=== PATIENT | female | born 1990 | race Caucasian/White ===

== ENCOUNTER 2017-12-13 08:52 | Emergency (ER) | payer MEDICAID, SELFPAY ==
[2017-12-13 08:52] VITALS: BP 141/78; PULSE 101; RESP 15; TEMP 36.6; O2SAT 100; BMI 51.3
--- NOTE | 2017-12-13 09:22 | ED.VISSUMM ---
- ER Visit Summary Date of Service: 12/13/17 Chief Complaint: Bilateral wrist pain History of Present Illness: The patient is a 26 F past medical history of reflux. Patient states on Wednesday she started on bilateral wrist and hand pain. It has been constant now for 3 days. No prior history. No falls or trauma. Also complains of pain behind both knees. Physical Examination: Well-appearing young female. Vital signs are stable she is afebrile she does not look septic toxic. H EENT exam unremarkable. Neck nontender. Lungs clear to auscultation bilaterally. Rate and rhythm no murmur. Abdomen soft nontender normal bowel sounds no peritoneal signs. He is moving all 4 extremities. Neurovascular intact. She has pain in both hands and wrists. There is been no trauma. No redness or swelling. She has positive Tinel sign to both wrists and Phalen's. She is equal symmetrical radial pulses normal cap refill touch sensation. There is no bony deformity is her shoulders, elbows, wrists or hands. She has normal range of motion. Neck and back exam unremarkable. Neurologic exam normal. Test Results: [] Emergency Department Course and Treatment: The patient may have signs consistent with tunnel. She will need further testing to evaluate this. She will be treated with IM Toradol here for pain. Placed on Naprosyn. Treatment Plan: Anti-inflammatories and cockup wrist splints. Disposition: Discharged Impression: Bilateral wrist pain and carpal tunnel This note was generated with [employer] dictation software. It may contain incorrect words, spelling, and punctuation that were not noted in review of the chart prior to signing ED Disposition - Plan for ED Patient: Chief Complaint: Other, Pain/Inj Referrals: Care Physician,No Primary [Primary Care Provider] -
--- NOTE | 2017-12-13 09:26 | ED.DEP ---
ED Disposition - Plan for ED Patient: Disposition: Home or Assisted Living Chief Complaint: Other, Pain/Inj Instructions: ED Carpal Tunnel Prescriptions: Naproxen [Naprosyn] 500 mg PO BID PRN PRN #20 tab PRN Reason: Pain Referrals: Junior Wright MD [STAFF PHYSICIAN] - Additional Instructions: Your wrist pain may be secondary to carpal tunnel. This will need further testing to diagnose it. Use cockup wrist splints at night. Naprosyn for pain and inflammation. Call and follow-up with Dr. Wright.
[2017-12-13] MEDS: Ketorolac 60 MG/2 ML Vial IM (09:44)
== END 2017-12-13 10:08 | disposition home or self-care (01) ==
PROVIDERS: Emergency Provider Emergency Medicine
DX: M25.532 Pain in left wrist (principal); M25.531 Pain in right wrist; K21.9 Gastro-esophageal reflux disease without esophagitis; Z72.0 Tobacco use
CPT/HCPCS: 96372; 99282

== ENCOUNTER 2018-11-16 08:01 | Emergency (ER) | payer MEDICAID, SELFPAY ==
[2018-11-16 08:02] VITALS: BP 146/78; PULSE 107; RESP 17; TEMP 36.8; O2SAT 99; BMI 54.0
--- NOTE | 2018-11-16 08:16 | ED.VISSUMM ---
- ER Visit Summary Date of Service: 11/16/18 Chief Complaint: Foot pain History of Present Illness: The patient is a 27 F with left foot pain. The pain started overnight and was worse this morning when she started ambulating. The pain is in her medial foot and wraps around to the bottom of her foot. Patient says she has had this pain on and off for 8 months. She does have a cartilage defect to her left ankle and was instructed by her tree thinner to wear a walking boot. She is not taking medication for this. No trauma. No weakness or numbness. No other injuries or complaints. Physical Examination: Afebrile and vital signs are unremarkable except for heart rate of 107. Patient appears uncomfortable. Inspection shows that the patient is wearing a walking boot. The boot was removed. Skin is normal. No deformities. Neurovascularly intact. Patient has pain on palpation to the bottom of her foot over the plantar fascia. Otherwise exam unremarkable. Ankle nontender. Calf soft and supple. Test Results: None indicated Emergency Department Course and Treatment: Patient's symptoms and findings are consistent with plantar fasciitis. I believe that her issues are worse because she is wearing this walking boot. She is not able to stretch the fascia. I talked to her about stretching and rolling her foot out on a can, and she says that she cannot do this because she has to wear the walking boot. I talked to her about inserts. She said that she had already tried them. I offered her crutches and she declined. I offered her a note for work, and she said she would take one for today. I offered anti-inflammatories, and she said they do not work. I do not feel that narcotics are indicated for this, nor are they safe. I suggested the patient might benefit from some physical therapy, and she said she already tried this and it does not work. Advised the patient to follow-up with her tree thinner for care of her foot and ankle. Treatment Plan: Anti-inflammatories, stretching, follow-up with podiatry. Disposition: As above Impression: 1. Left foot pain This note was generated with [employer] software. It may contain incorrect words, spelling, and punctuation that were not noted in review of the chart prior to signing ED Disposition - Plan for ED Patient: Referrals: Osmani Holcomb MD [Primary Care Provider] -
--- NOTE | 2018-11-16 08:20 | DCINST.ED_ITS ---
ED Disposition - Plan for ED Patient: Instructions: Treating Plantar Fasciitis Additional Instructions: Follow up with your cryptologic support specialist
--- NOTE | 2018-11-16 08:20 | ED.DCSUM_ITS ---
- ER Visit Summary Date of Service: 11/16/18 Chief Complaint: Foot pain History of Present Illness: The patient is a 27 F with left foot pain. The pain started overnight and was worse this morning when she started ambulating. The pain is in her medial foot and wraps around to the bottom of her foot. Patient says she has had this pain on and off for 8 months. She does have a cartilage defect to her left ankle and was instructed by her shearer screen measurer and trimmer to wear a walking boot. She is not taking medication for this. No trauma. No weakness or numbness. No other injuries or complaints. Physical Examination: Afebrile and vital signs are unremarkable except for heart rate of 107. Patient appears uncomfortable. Inspection shows that the patient is wearing a walking boot. The boot was removed. Skin is normal. No deformities. Neurovascularly intact. Patient has pain on palpation to the bottom of her foot over the plantar fascia. Otherwise exam unremarkable. Ankle nontender. Calf soft and supple. Test Results: None indicated Emergency Department Course and Treatment: Patient's symptoms and findings are consistent with plantar fasciitis. I believe that her issues are worse because she is wearing this walking boot. She is not able to stretch the fascia. I talked to her about stretching and rolling her foot out on a can, and she says that she cannot do this because she has to wear the walking boot. I talked to her about inserts. She said that she had already tried them. I offered her crutches and she declined. I offered her a note for work, and she said she would take one for today. I offered anti-inflammatories, and she said they do not work. I do not feel that narcotics are indicated for this, nor are they safe. I suggested the patient might benefit from some physical therapy, and she said she already tried this and it does not work. Advised the patient to follow-up with her shearer screen measurer and trimmer for care of her foot and ankle. Treatment Plan: Anti-inflammatories, stretching, follow-up with podiatry. Disposition: As above Impression: 1. Left foot pain This note was generated with [employer] software. It may contain incorrect words, spelling, and punctuation that were not noted in review of the chart prior to signing ED Disposition - Plan for ED Patient: Referrals: Osmani Holcomb MD [Primary Care Provider] -
[2018-11-16] MEDS: Naproxen 500 MG Tablet PO (08:40)
== END 2018-11-16 08:40 | disposition home or self-care (01) ==
LOC: ED 08:30
PROVIDERS: Emergency Provider Emergency Medicine; Family Provider Family Medicine; PCP Family Medicine
DX: M79.672 Pain in left foot (principal); Z72.0 Tobacco use
CPT/HCPCS: 99283

== ENCOUNTER 2019-02-19 10:44 | Emergency (ER) | payer MEDICAID, SELFPAY ==
[2019-01-10 12:47] VITALS: BMI 54.0
[2019-02-19 10:45] VITALS: BP 131/85; PULSE 97; RESP 17; TEMP 36.6; O2SAT 99; BMI 53.1
--- NOTE | 2019-02-19 11:03 | RAD_ITS ---
STUDY: X-RAY CHEST REASON FOR EXAM: Female, 28 years old. Severe cough for one week. TECHNIQUE: PA and lateral views of the chest. COMPARISON: None. FINDINGS: The lungs are clear and expanded. There is no demonstrated pleural abnormality. Normal size heart. Normal mediastinum and marsha. Normal visualized pulmonary arteries. Normal visualized aortic arch and descending thoracic aorta. Normal visualized thoracic spine. Normal visualized ribs, clavicles, and shoulders. There is no demonstrated abnormality of the visualized soft tissue structures of the upper abdomen. RAD/Chest PA and Lateral IMPRESSION: Normal x-ray examination of the chest. Electronically Signed: Gurpreet Tran DO at 11:49 EDT Tel [phone], Service support ,
--- NOTE | 2019-02-19 12:16 | ED.VIS.URI ---
History of Present Illness Informant: Patient Onset: Weeks - 1 Context: Gradual Onset Timing: Continuous Quality: Productive cough Location: Chest Current Severity: Severe Maximum Severity: Severe Worsened by: - - At night Relieved by: - - Nothing Associated Symptoms: Nasal Congestion, Diarrhea, Productive Cough. Negative for: Headache, Sinus Pressure, Myalgias, Nausea, Vomiting, Shortness of Breath, Chest Pain, Nonproductive cough, Hemoptysis Narrative: 28-year-old female presents with 10 days of productive cough with sputum diarrhea sore throat and congestion. No fevers or chills or hemoptysis. No chest pain or shortness of breath. No vomiting. No abdominal pain. Kids sick with similar symptoms. 2 days ago went to an urgent care was prescribed a cough medicine. She has not had improvement. She is concerned for pneumonia. No history of asthma. Denies smoking. Rest of her review of systems negative. Prior similar symptoms: Yes Recent Illness/Hospitalization: No <Sean Frank - Last Filed: 02/19/19 12:30> <Torrey Ji - Last Filed: 02/19/19 16:16> Chief Complaint: Cough Past Medical History Prior records reviewed: Yes Past Medical History: - - Depression Surgical History: no surgical history Smoking Status: Current every day smoker <Sean Frank - Last Filed: 02/19/19 12:30> <Torrey Ji - Last Filed: 02/19/19 16:16> - Allergies and Home Meds Allergies/Adverse Reactions: Allergies No Known Allergies Allergy (Verified 02/19/19 10:45) Primary Care Physician: Osmani Holcomb MD [Primary Care Provider] - Review of Systems All systems negative except as indicated General: Reports: Malaise Respiratory: Reports: Cough, Sputum <Sean Frank - Last Filed: 02/19/19 12:30> Physical Exam Vital Signs/Narrative: Vital Signs Temp Pulse Resp BP Pulse Ox 02/19/19 10:45 97.9 F 97 17 131/85 H 99 Inital Vital Signs reviewed: Yes General: Well nourished, Well developed, Obese Head: Normocephalic, Atraumatic Eyes: Perrl, EOMI Ears: Normal external canal, TM's clear Nose: Normal Inspection, Congestion Mouth/Throat: Normal Inspection, No Posterior Erythema, Airway Patent Tonsils: Negative for: Absent, Right Tonsilar Erythema, Left Tonsilar Erythema Neck: Supple, Nontender, No Lymphadenopathy, No Meningismus Cardiovascular: Regular rate, Regular rhythm, No murmurs Respiratory: No distress, CTA bilaterally, Chest nontender Abdomen: Soft, Nontender, Nondistended, Normal bowel sounds, No masses Back: Nontender Extremities: Nontender, No edema Skin: Normal color, No rash Neurological: Alert, Oriented x3 <Sean Frank - Last Filed: 02/19/19 12:30> Diagnostic/Tx/Re-eval Chest X-Ray - ED: 2 View, Read by ED Physician, Read by Radiologist, No Acute Disease - Medical Decision Making Vital signs are stable and overall the patient appears well and is not clinically dehydrated. Her chest x-ray is unremarkable. Abdomen is soft and nontender. She is able to tolerate by mouth. Discussed with her this is likely a viral illness. Will prescribe an albuterol MDI for her cough as well as Tessalon Perles. She will continue supportive care at home and follow-up with her primary care physician. <Sean Frank - Last Filed: 02/19/19 12:30> - Medical Decision Making Seen and evaluated independently and in conjunction with physician retail loan originator assistant. Agree with notes above unless documented otherwise. <Torrey Ji - Last Filed: 02/19/19 16:16> ED Disposition <Sean Frank - Last Filed: 02/19/19 12:30> <Torrey Ji - Last Filed: 02/19/19 16:16> - Plan for ED Patient: Disposition: Home or Assisted Living Diagnosis: Acute bronchitis Instructions: BRONCHITIS, No Antibiotic (Adult) Prescriptions: Benzonatate [Tessalon Perle] 200 mg PO TID PRN PRN #20 cap PRN Reason: Cough Prescription Printed Albuterol Inhaler [Ventolin Hfa] 1 - 2 puff INHALATION Q4H PRN PRN #1 inhaler PRN Reason: Wheezing Prescription Printed Referrals: Osmani Holcomb MD [Primary Care Provider] -
== END 2019-02-19 12:56 | disposition home or self-care (01) ==
PROVIDERS: Emergency Provider Physician Assistant Medical; Family Provider Family Medicine; PCP Family Medicine
DX: J20.9 Acute bronchitis, unspecified (principal); F17.200 Nicotine dependence, unspecified, uncomplicated
CPT/HCPCS: 71046; 99282

== ENCOUNTER 2019-12-06 03:53 | Emergency (ER) | payer MEDICAID, SELFPAY ==
[2019-12-06 03:54] VITALS: BP 159/118; PULSE 87; RESP 33; TEMP 36.6; O2SAT 100; BMI 51.7
--- NOTE | 2019-12-06 04:05 | EKG12_ITS ---
Test Reason : CP Blood Pressure : / mmHG Vent. Rate : 086 BPM Atrial Rate : 086 BPM P-R Int : 146 ms QRS Dur : 086 ms QT Int : 384 ms P-R-T Axes : 030 060 047 degrees QTc Int : 459 ms Normal sinus rhythm Normal ECG Confirmed by LANCE HUFF ([id number]), editorial director MARCELINA DAO ([id number]) on 12/11/2019 1:48:19 PM Referred By: MARGARITA Confirmed By:LANCE HUFF
--- NOTE | 2019-12-06 04:07 | ED.DCSUM_ITS ---
- ER Visit Summary Date of Service: 12/06/19 Chief Complaint: Chest pain History of Present Illness: The patient is a [address] Holcomb. She reports that she has chest pain that began 11:00 last night while she was at rest. She went to bed and woke up with a much worse pain. She says that that is been continuous the whole time. It is heavy and is 10 out of 10 in severity. Nothing makes this worse including exertion or breathing. Nothing makes this better. She reports she is been sweaty with this. She denies any nausea, vomiting, or shortness of breath. He is never had anything like this before. Patient denies any abdominal pain. She denies any history of fatty food intolerance. Physical Examination: Vitals: Stable. Afebrile. General: Well-nourished and well-developed. Head: Normocephalic atraumatic. Neck: Supple, no lymphadenopathy. No JVD. Nontender. Cardiovascular: Regular rate and rhythm. No murmurs. Respiratory: No respiratory distress. Clear to auscultation bilaterally. Abdominal: Soft, nontender, nondistended, normal bowel sounds. No guarding, rebound, or peritoneal signs. Back: Nontender. Extremities: Nontender, no edema. Skin: Normal color, no rash. Neurologic: Alert and oriented ?3. Cranial nerves II through XII are intact. Normal strength and sensation. Psych: Normal affect. Test Results: EKG is sinus at 86. Nonspecific ST changes with artifact. No ischemic changes. CBC shows white count of 14.1 with normal differential. Chem-7 is normal. LFTs are remarkable for a globulin of 4.3. Lipase is normal. Troponin is negative. test is negative. Chest x-ray is read by the radiologist as a possible right lower lobe infiltrate. I disagree with this. Poor inspiration. Emergency Department Course and Treatment: Patient had an IV placed. She was given a liter of normal saline. She was given Toradol IV. She was given a GI cocktail p.o. her pain is completely resolved. I discussed with the patient possibility of a pneumonia. She denies having a cough. She states that she felt fine until this began. Discussed at this time I do not have an explanation for her pain. Treatment Plan: Patient be discharged instructions follow-up with her primary care physician in 1 to 2 days for another exam. Return to the emergency department for any worsening symptoms. Disposition: To home in improved and stable condition. Impression: 1. Atypical chest pain, uncertain cause. This note was generated with [employer] dictation software. It may contain incorrect words, spelling, and punctuation that were not noted in review of the chart prior to signing ED Disposition - Plan for ED Patient: Instructions: ED Chest Pain Atypical Unkn Cause Referrals: Osmani Holcomb MD [Primary Care Provider] - 1-2 Days if not improving
[2019-12-06 04:15] VITALS: BP 119/98; PULSE 85; RESP 23; O2SAT 98
[2019-12-06] MEDS: Ketorolac 30 MG/ML Syringe IV (04:19)
[2019-12-06] MEDS: Ondansetron 4 MG/2 ML Vial IV (04:19)
[2019-12-06] MEDS: 0.9% Normal Saline 1,000 ML 1000 ML IV (04:19)
[2019-12-06 04:20] LABS: Absolute Lymphocyte Count 4.39 X10^3/uL (0.83-4.51); Absolute Neutrophil Count 8.4 X10^3/uL (2.0-7.7); Basophil# 0.06 X10^3/uL; Basophil% 0.4 % (0-1); Eosinophil# 0.14 X10^3/uL; Hematocrit 42.8 % (37-47); Lymphocyte # 4.39 X10^3/ul (4.0); Lymphocyte % 31.2 % (19-41); Mean Corp Hgb Conc 32.7 g/dL (32-36); Mean Corpuscular Hgb 28.1 pg (27.0-32.0); Mean Corpuscular Volume 85.8 fL (81-99); Mean Platelet Vol. 11.5 fl (6.2-12.0); Monocyte# 0.97 X10^3/uL; Monocyte% 6.9 % (0-10); NRBC Flagged by Analyzer 0 % (0-5); Neutrophil # 8.43 X10^3/uL (2.7-7.7); Platelet Count 290 K/mm3 (150-450); RBC Distribution Width CV 13.5 % (11.6-14.6); RBC Distribution Width SD 41.7 fl (35.1-43.9); Red Blood Count 4.99 M/mm3 (4.2-5.4); White Blood Count 14.1 K/mm3 (4.4-11.0)
[2019-12-06] MEDS: Mag Hydrox/Al Hydrox/Simeth 30 ML UDC PO (04:20)
--- NOTE | 2019-12-06 04:20 | RAD_ITS ---
STUDY: X-RAY CHEST REASON FOR EXAM: Female, 28 years old. CHEST PAIN TECHNIQUE: Single AP portable view of the chest. COMPARISON: February 19, 2019 chest x-ray. FINDINGS: The lungs are underexpanded. There is visualized motion artifact and the study and grainy artifact.. There is no demonstrated pleural abnormality. Normal size heart. Normal mediastinum and marsha. Normal visualized pulmonary arteries. Normal visualized aortic arch and descending thoracic aorta. Normal visualized thoracic spine. Normal visualized ribs, clavicles, and shoulders. There is no demonstrated abnormality of the visualized soft tissue structures of the upper abdomen. RAD/Chest 1 View (Portable) IMPRESSION: Study limited by artifact. Subtle slightly greater haziness of the right lower lobe when compared to prior study consider atelectasis possible summation of shadows cannot entirely exclude early developing infiltrate. Electronically Signed: Ayesha Cordova MD at 4:37 EDT Tel , Service support ,
[2019-12-06 04:26] LABS: Internal QC Validated? YES +Cl - CLEAR BKGD; Pregnancy, Serum, hCG Quali. NEGATIVE Negative
[2019-12-06 04:37] LABS: ALB/GLOB Ratio 0.8 RATIO (0.9-2.4); AST(SGOT) 15 U/L (15-37); Alanine Aminotransfer ALT/SGPT 33 U/L (13-56); Albumin, Serum 3.5 g/dL (3.2-5.0); Alkaline Phosphatase 67 U/L (45-117); Anion Gap 11 (5-15); BUN 18 mg/dL (7-18); BUN/Creat Ratio 23.6 RATIO (10-20); Calcium,Total 8.7 mg/dL (8.5-10.1); Chloride 105 mmol/L (98-107); Creatinine, Serum 0.76 mg/dL (0.55-1.02); EST Glomerular Filtration Rate 96 mL/min (>60); Est Glom Filt Rate - Afr Amer 116 mL/min (>60); Estimated Creatinine Clearance 91.98 ml/min; Globulin 4.3 g/dL (2.2-4.2); Glucose 102 mg/dL (74-106); Lipase 131 U/L (73-393); Potassium 3.5 mmol/L (3.5-5.1); Protein, Total 7.8 g/dL (6.4-8.2); Sodium Level 141 mmol/L (136-145)
[2019-12-06 04:56] VITALS: BP 118/78; PULSE 86; RESP 16; O2SAT 100
== END 2019-12-06 04:55 | disposition home or self-care (01) ==
LOC: ED 04:57
PROVIDERS: Emergency Provider Emergency Medicine; PCP Family Medicine
DX: R07.89 Other chest pain (principal); M54.9 Dorsalgia, unspecified; K21.9 Gastro-esophageal reflux disease without esophagitis; F17.210 Nicotine dependence, cigarettes, uncomplicated; F41.9 Anxiety disorder, unspecified
CPT/HCPCS: 71045; 80053; 83690; 84484; 84703; 85025; 93005; 96361; 96374; 96375; 99285; J7030; A4216; J2405

== ENCOUNTER 2021-05-06 00:17 | Emergency (ER) | payer MEDICAID, SELFPAY ==
[2021-05-06 00:18] VITALS: BP 155/101; PULSE 104; RESP 16; TEMP 36.4; O2SAT 98; BMI 52.0
[2021-05-06 00:20] VITALS: BP 155/101; PULSE 104; RESP 16; TEMP 36.4; O2SAT 98
--- NOTE | 2021-05-06 00:37 | EDS_ITS ---
HPI History of Present Illness Chief Complaint: Headache Informant: patient Narrative Narrative: Patient presents with migraine headache. It is left sided frontal and posterior. It is typical for her migraines. She has nausea but no vomiting. She has photophobia. This started on Wednesday. She normally takes Maxalt but is out of it so she could not take that. Other than that it is the same as her normal headache. She gets these several times a week. [facility] Medical History Migraines Home Medications ranitidine HCl 150 mg PO DAILY 07/24/17 [History Last Taken Unknown] omeprazole 40 mg PO DAILY 11/16/18 [History Last Taken Unknown] propranolol 10 mg PO DAILY 11/16/18 [History Last Taken Unknown] albuterol sulfate 1 - 2 puff INHALATION Q4H PRN PRN #1 inhaler 02/19/19 [Rx Last Taken Unknown] paroxetine HCl 30 mg PO DAILY 12/06/19 [History Last Taken Unknown] Allergy/AdvReac Type Severity Reaction Status Date / Time No Known Allergies Allergy Verified 03/24/21 13:36 Social History Smoking Status: Current every day smoker tobacco type: cigarettes ROS ROS ED Constitutional Constitutional ED: Denies chills, fever(s) or subjective Eyes Eyes: Reports other Details: Positive photophobia. ; Denies blurry vision, change in vision or diplopia ENT ENT ED: Denies rhinorrhea Cardiovascular Cardiovascular: Denies chest pain or palpitations Respiratory/Chest Respiratory/Chest: Denies cough or dyspnea Gastrointestinal Gastrointestinal: Reports nausea; Denies abdominal pain, diarrhea or vomiting Musculoskeletal Musculoskeletal: Denies arthralgias, back pain, myalgias or neck pain Integumentary Denies rash Neurologic Neurologic: Reports headache(s); Denies paresthesias or weakness Psychiatric Psychiatric: Denies anxiety or depression Hematologic/Lymphatic Hematologic/Lymphatic: Denies easy bleeding or easy bruising Allergic/Immunologic Allergic/Immunologic ED: Denies urticaria EXAM Physical Exam Const Vital Signs: 05/06/21 00:18 05/06/21 00:20 Temperature 97.5 F L 97.5 F L Temperature Source Temporal Temporal Pulse Rate 104 H 104 H Respiratory Rate 16 16 Blood Pressure 155/101 H 155/101 H Blood Pressure Mean 119 119 Pulse Ox 98 98 Oxygen Delivery Method Room Air Room Air Patient does prefer sitting in a darkened room. Positive well nourished, well developed and obese General Appearance ED: well developed and NAD Nutritional Appearance: obese HEENT Reports normocephalic and moist mucous membranes atraumatic; Negative for tenderness Eyes PERRL and EOMs intact bilaterally General Eye ED: Negative for pale conjunctiva or scleral icterus Neck no lymphadenopathy and supple Resp normal respiratory effort Cardio regular rate and regular rhythm GI non-tender Palpation: soft Extremity normal to inspection General Extremety ED: Negative for tenderness Neuro oriented x3 and no sensory deficits noted Sensorium / Orientation: awake and alert Speech: speech normal Gait (Neuro): normal gait Motor Exam: strength 5/5 throughout Psych mental status grossly normal Skin Skin Narrative: No facial rash or vesicles. Lesions: no lesions Rashes: no rashes MDM MDM MDM Narrative Medical decision making narrative: Patient states her headache is much better. She will follow up with her physicians. She should return with worsening headache, fevers recurrent vomiting or other concerns. She should follow-up and have her blood pressure rechecked. Discharge Plan Triage Chief Complaint: Headache ED Provider: Rohan Blankenship Dx/Rx/DC Orders Clinical Impression: Migraine Instructions: ED, Migraine (Classical) Prescriptions: No Action ranitidine HCl 150 MG tablet 150 mg PO DAILY RF: 0 omeprazole 40 MG Capsule.Dr 40 mg PO DAILY RF: 0 propranolol 10 tablet 10 mg PO DAILY RF: 0 albuterol sulfate 1 INHALER inhaler 1 - 2 puff inhalation Q4H PRN PRN (Reason: Wheezing) Qty: 1 RF: 0 paroxetine HCl 30 MG tablet 30 mg PO DAILY RF: 0 Primary Care Provider: Osmani Holcomb Referrals: Osmani Holcomb MD [Primary Care Provider] - As soon as possible Disposition Disposition: Home, Self Care
[2021-05-06] MEDS: 0.9% Normal Saline 1,000 ML 999 ML IV (00:46)
[2021-05-06] MEDS: proCHLORPERazine 10 MG/2 ML Vial IV (00:46)
[2021-05-06] MEDS: DiphenhydrAMINE 50 MG/ML Syringe IV (00:46)
[2021-05-06 01:54] VITALS: BP 131/77; PULSE 81; RESP 14; O2SAT 96
--- NOTE | 2021-05-06 01:59 | ED.RN ---
had 1/2 of saline bag at dc. pt feeling MUCH improved.
== END 2021-05-06 01:59 | disposition home or self-care (01) ==
PROVIDERS: Emergency Provider Emergency Medicine; PCP Family Medicine
DX: G43.909 Migraine, unspecified, not intractable, without status migrainosus (principal); E66.9 Obesity, unspecified; F17.210 Nicotine dependence, cigarettes, uncomplicated
CPT/HCPCS: 96361; 96374; 96375; 99282; J7030; A4216

== ENCOUNTER 2022-11-28 15:51 | Emergency (ER) | payer MEDICAID, SELFPAY ==
[2022-11-28 15:52] VITALS: BP 128/83; PULSE 85; RESP 16; TEMP 36.7; O2SAT 100; BMI 49.0
--- NOTE | 2022-11-28 16:17 | EDS_ITS ---
HPI History of Present Illness Chief Complaint: Abscess Informant: patient Narrative Narrative: Patient has a swollen tender area in the right lateral inguinal fold. She states has been there for about 4 days. It was just a little sore. But over the last 24 hours it started to swell. She has no systemic symptoms such as nausea vomiting fevers or chills. No history of diabetes polyuria or polydipsia. After discussion with the patient, I find out she is actually had this happen many times in the same area. She is normally able to get it to drain on her own. It will go away for anywhere from a couple weeks to a couple months then come back. She has never had any formal procedure performed on it. [facility] Medical History Migraines Home Medications ranitidine HCl 150 mg tablet 150 mg PO DAILY 07/24/17 [History Last Taken Unknown] omeprazole 40 mg capsule,delayed release 40 mg PO DAILY 11/16/18 [History Last Taken Unknown] propranolol 10 mg tablet 10 mg PO DAILY 11/16/18 [History Last Taken Unknown] albuterol sulfate 90 mcg/actuation aerosol inhaler 1 - 2 puff inhalation Q4H PRN PRN Wheezing ##1 02/19/19 [Rx Last Taken Unknown] paroxetine HCl 30 mg tablet 30 mg PO DAILY 12/06/19 [History Last Taken Unknown] cephalexin 500 mg capsule 500 mg PO Q6 #40 CAPSULES 11/28/22 [Rx Last Taken Unknown] sulfamethoxazole 800 mg-trimethoprim 160 mg tablet 1 tab PO BID #20 TABLETS 11/28/22 [Rx Last Taken Unknown] Allergy/AdvReac Type Severity Reaction Status Date / Time No Known Allergies Allergy Verified 11/28/22 15:54 Social History Smoking Status: Current every day smoker tobacco type: cigarettes ROS ROS ED Constitutional Constitutional ED: Denies chills or fever(s) Cardiovascular Cardiovascular: Denies chest pain, palpitations or racing heartbeat Gastrointestinal Gastrointestinal: Denies nausea or vomiting Musculoskeletal Musculoskeletal: Denies myalgias Integumentary Reports abscess Endocrine Endocrinology: Denies polydipsia or polyuria Hematologic/Lymphatic Hematologic/Lymphatic: Denies easy bleeding, easy bruising or lymphadenopathy Allergic/Immunologic Allergic/Immunologic ED: Denies urticaria EXAM Physical Exam Narrative Exam Narrative: Patient awake alert no acute distress. HEENT shows no trauma. Mucous membranes are moist Heart is regular without murmur gallop or rub. Lungs are clear. Breathing is easy unlabored and saturations are normal. Abdomen is obese but otherwise benign. Skin: Below the pannus on the right side in the lateral most aspect of the inguinal fold is a area of erythema warmth and fluctuance that is about 1 x 2- 1/2 cm. There is some mild surrounding erythema. This is consistent with cutaneous abscess. It looks like there is some scarring over it like it may have drained multiple times in the past. This is consistent with her history. I do not see a draining at this time. Const Vital Signs: 11/28/22 15:52 Temperature 98.1 F Temperature Source Temporal Pulse Rate 85 Respiratory Rate 16 Blood Pressure 128/83 H Blood Pressure Mean 98 Pulse Ox 100 Oxygen Delivery Method Room Air MDM MDM MDM Narrative Medical decision making narrative: Procedure: Incision and drainage of abscess: I discussed options with the patient. She did agree to go through with drainage. The area was cleansed. Patient held pannus up. I anesthetized it with about 8 cc of 1% lidocaine all around the area. Good anesthesia was achieved. An incision was made about 1/2 cm long in the most fluctuant area. We got easy release of purulent material. Loculations were probed and I was able to get a little more material. I think there is a more formed cyst wall within this. I was able to get some of this out but it was so friable came out in small pieces. I did irrigated. We then packed it with quarter inch gauze but the pocket is not that big so I cannot get a large amount of gauze in there. I explained the patient how to care for this. She should remove the gauze in about 3 days. We will get her on antibiotics because of the surrounding erythema and the fact that she has had right hip surgery with hardware. I explained also that this may need formal removal when the inflammation is down as I do think there is a well-formed cyst wall and this will likely be a recurrent issue. Discharge Plan Triage Chief Complaint: Abscess ED Provider: Rohan Blankenship Dx/Rx/DC Orders Clinical Impression: Cutaneous abscess of groin Instructions: ED Abscess Incision And Drainage Prescriptions: New sulfamethoxazole-trimethoprim [sulfamethoxazole-trimethoprim] 800-160 mg tablet 1 tab PO BID Qty: 20 0RF cephalexin [cephalexin] 500 mg capsule 500 mg PO Q6 Qty: 40 0RF No Action ranitidine HCl 150 MG tablet 150 mg PO DAILY omeprazole 40 MG capsule,delayed release(DR/EC) 40 mg PO DAILY Label Comments: Take 1 capsule by mouth once daily. propranolol 10 tablet 10 mg PO DAILY albuterol sulfate 1 INHALER inhaler 1 - 2 puff inhalation Q4H PRN PRN (Reason: Wheezing) Qty: 1 0RF paroxetine HCl 30 MG tablet 30 mg PO DAILY Primary Care Provider: Osmani Holcomb Referrals: Osmani Holcomb MD [Primary Care Provider] - 3-5 Days if not improving Disposition Disposition: Home, Self Care
[2022-11-28] MEDS: Smz/Tmp Ds Tablet 1 TABLET PO (16:33)
[2022-11-28] MEDS: Cephalexin 250 MG Capsule 500 MG PO (16:33)
== END 2022-11-28 16:40 | disposition home or self-care (01) ==
PROVIDERS: Emergency Provider Emergency Medicine; PCP Family Medicine; Visit Provider Emergency Medicine
DX: L02.214 Cutaneous abscess of groin (principal); F17.210 Nicotine dependence, cigarettes, uncomplicated
CPT/HCPCS: 10060; 99283

== ENCOUNTER 2024-02-14 09:20 | Emergency (ER) | payer MEDICAID, SELFPAY ==
[2024-02-14 09:21] VITALS: BP 107/77; PULSE 88; RESP 18; TEMP 35.9; O2SAT 97; BMI 50.5
--- NOTE | 2024-02-14 09:40 | EDS_ITS ---
HPI History of Present Illness Chief Complaint: Cold Sx Informant: patient Narrative Narrative: 33-year-old female presenting to the emergency room with cough shortness of breath. Patient has been sick for 5 days. Daughter is also sick but got sick first. Patient denies any sore throat. She does states that she has been having fevers. No earache or significant rhinorrhea. She denies any known lung conditions. No vomiting diarrhea or rashes. Cough occasionally productive of sputum. PFSH PFS Medical History Migraines Home Medications ?Medication ?Instructions ?Recorded ?Last Taken ?Type ranitidine HCl 150 mg tablet 150 mg PO DAILY 07/24/17 Unknown History omeprazole 40 mg capsule,delayed 40 mg PO DAILY 11/16/18 Unknown History release propranolol 10 mg tablet 10 mg PO DAILY 11/16/18 Unknown History albuterol sulfate 90 mcg/actuation 1 - 2 puff inhalation Q4H PRN PRN 02/19/19 Unknown Rx aerosol inhaler Wheezing ##1 paroxetine HCl 30 mg tablet 30 mg PO DAILY 12/06/19 Unknown History cephalexin 500 mg capsule 500 mg PO Q6 #40 CAPSULES 11/28/22 Unknown Rx sulfamethoxazole 800 1 tab PO BID #20 TABLETS 11/28/22 Unknown Rx mg-trimethoprim 160 mg tablet albuterol sulfate 90 mcg/actuation 2 puff inhalation Q4H PRN PRN 02/14/24 Unk nown Rx aerosol inhaler (Ventolin HFA) Wheezing ##1 azithromycin 250 mg tablet See Rx Instructions PO .COMPLEX #6 02/14/24 Unknown Rx (Zithromax Z-Lg) tabs Allergy/AdvReac Type Severity Reaction Status Date / Time No Known Allergies Allergy Verified 02/14/24 09:20 Social History Smoking Status: Current every day smoker tobacco type: cigarettes ROS ROS ED Constitutional Constitutional ED: Reports chills, fever(s) and sweats; Denies weight loss Eyes Eyes: Denies change in vision or diplopia ENT ENT ED: Denies ear pain, rhinorrhea or sore throat Cardiovascular Cardiovascular: Denies chest pain, orthopnea, palpitations or racing heartbeat Respiratory/Chest Respiratory/Chest: Reports cough; Denies dyspnea or orthopnea Gastrointestinal Gastrointestinal: Denies abdominal pain, diarrhea, nausea or vomiting Genitourinary Genitourinary ED: Denies dysuria, hematuria or urinary frequency Musculoskeletal Musculoskeletal: Denies arthralgias or myalgias Integumentary Denies abscess or rash Neurologic Neurologic: Denies headache(s) or weakness Psychiatric Psychiatric: Denies anxiety, depression, suicidal ideation or suicidal thoughts Endocrine Endocrinology: Denies polydipsia, polyphagia or polyuria Allergic/Immunologic Allergic/Immunologic ED: Denies mouth swelling, tongue swelling or urticaria EXAM Physical Exam Const Vital Signs: 02/14/24 09:21 02/14/24 09:30 Temperature 96.7 F L Temperature Source Temporal Pulse Rate 88 Respiratory Rate 18 Respiratory Effort Normal Blood Pressure 107/77 Blood Pressure Mean 87 Pulse Ox 97 Oxygen Delivery Method Room Air Positive well nourished, well developed and obese General Appearance ED: well developed and NAD Nutritional Appearance: obese HEENT Reports normocephalic, head/scalp atraumatic and moist mucous membranes Eyes PERRL and EOMs intact bilaterally Neck no lymphadenopathy, supple and no JVD Resp normal respiratory effort and clear to auscultation bilaterally Resp Narrative: Dry cough. Speaks in full sentences Cardio regular rate, regular rhythm and no murmurs GI normal to inspection, nondistended, normoactive bowel sounds and non-tender Palpation: soft Back/Spine no CVA tenderness and normal ROM Extremity normal to inspection General Extremety ED: Negative for edema General Extremity: Negative for edema Neuro oriented x3 and CN's II-XII intact bilaterally Sensorium / Orientation: alert Motor Exam: strength 5/5 throughout Psych mental status grossly normal Mood & Affect: Negative for depressed or tearful Skin no rashes or lesions noted and no wounds MDM MDM MDM Narrative Medical decision making narrative: Differential diagnosis includes bronchospasm bronchitis pneumonia pleural effusion viral syndrome My independent interpretation of the chest x-ray is no acute process. COVID influenza and RSV swabs were negative. Patient's daughter appears to have infiltrative changes in the left lower lobe. Both are sick at the same time the daughter has been sick 2 days longer. I do not think that it is unreasonable to start this patient on azithromycin and albuterol MDI. Have her continue fever control oral hydration follow-up with primary care if not improving History & Record Review Discussion w/independent historian: Patient Lab Data Attestation: I reviewed the patient's lab results. Radiography Diagnostic Testing: Clinical Impression(s) from Imaging Studies Chest X-Ray 02/14/24 09:40 IMPRESSION: Scattered calcified granulomas. The lungs are clear. Electronically Signed: Wild Leal MD at 9:57 EDT , Discharge Plan Triage Chief Complaint: Cold Sx ED Provider: José Pleitez Dx/Rx/DC Orders Clinical Impression: Bronchitis Instructions: ED Bronchitis with Wheezing (Adult) Prescriptions: New azithromycin [Zithromax Z-Lg] 250 mg tablet See Rx Instructions .ROUTE .COMPLEX Qty: 6 0RF Rx Instructions: For 250 mg dose pack: take 500 mg today (day 1), then 250 mg for 4 days (days 2-5) albuterol sulfate [Ventolin HFA] 90 mcg/actuation HFA aerosol inhaler 2 puff inhalation Q4H PRN PRN (Reason: Wheezing) Qty: 1 0RF Rx Instructions: with spacer No Action ranitidine HCl 150 MG tablet 150 mg PO DAILY omeprazole 40 MG capsule,delayed release(DR/EC) 40 mg PO DAILY Patient Comments: Take 1 capsule by mouth once daily. propranolol 10 tablet 10 mg PO DAILY albuterol sulfate 1 INHALER inhaler 1 - 2 puff inhalation Q4H PRN PRN (Reason: Wheezing) Qty: 1 0RF paroxetine HCl 30 MG tablet 30 mg PO DAILY sulfamethoxazole-trimethoprim [sulfamethoxazole-trimethoprim] 800-160 mg tablet 1 tab PO BID Qty: 20 0RF cephalexin [cephalexin] 500 mg capsule 500 mg PO Q6 Qty: 40 0RF Primary Care Provider: Osmani Holcomb Referrals: Osmani Holcomb MD [Primary Care Provider] - Print Language: Macedonian
--- NOTE | 2024-02-14 09:40 | RAD_ITS ---
STUDY: X-RAY CHEST REASON FOR EXAM: Female, 33 years old. Cough TECHNIQUE: PA and lateral views of the chest. COMPARISON: Comparison is made with prior study dated December 06, 2019. FINDINGS: The lungs are clear and expanded. Scattered calcified granulomas. There is no demonstrated pleural abnormality. Normal size heart. Normal mediastinum and marsha. Normal visualized pulmonary arteries. Normal visualized aortic arch and descending thoracic aorta. There are diffuse degenerative changes of the visualized thoracic spine. Increased kyphosis. Normal visualized ribs, clavicles, and shoulders. There is no demonstrated abnormality of the visualized soft tissue structures of the upper abdomen. RAD/Chest PA and Lateral IMPRESSION: Scattered calcified granulomas. The lungs are clear. Electronically Signed: Wild Leal MD at 9:57 EDT ,
== END 2024-02-14 10:57 | disposition home or self-care (01) ==
PROVIDERS: Emergency Provider Emergency Medicine; PCP Family Medicine; Visit Provider Emergency Medicine
DX: J40 Bronchitis, not specified as acute or chronic (principal); F17.210 Nicotine dependence, cigarettes, uncomplicated
CPT/HCPCS: 71046; 87631; 99282

== ENCOUNTER 2024-07-11 00:41 | Emergency (ER) | payer MEDICAID, SELFPAY ==
[2024-07-11] VITALS (7 sets, daily range): BP systolic 125–159; BP diastolic 83–109; PULSE 62–93; RESP 14–20; TEMP 35.9–36.8; O2SAT 97–100; BMI 50.6
--- NOTE | 2024-07-11 01:15 | RAD_ITS ---
INDICATION: pain EXAMINATION/TECHNIQUE: X-RAY - XR Chest 1 View COMPARISON: Prior study dated: 02/14/2024 FINDINGS: LINES/DEVICES: None. LUNGS: The lungs are well expanded. No consolidation, edema or effusion. No pneumothorax. MEDIASTINUM AND CARDIOVASCULAR STRUCTURES: Cardiac silhouette not enlarged. Central airways and mediastinal contour are unremarkable. BONES AND SOFT TISSUES: No acute abnormality. RAD/Chest 1 View (Portable) IMPRESSION: No acute pulmonary finding. Electronically Signed: Mario Conner MD at 2:55 EST ,
--- NOTE | 2024-07-11 01:15 | EKG12_ITS ---
Test Reason : CP Blood Pressure : */* mmHG Vent. Rate : 83 BPM Atrial Rate : 83 BPM P-R Int : 166 ms QRS Dur : 80 ms QT Int : 394 ms P-R-T Axes : 16 26 29 degrees QTcB Int : 462 ms Normal sinus rhythm Normal ECG Confirmed by ROSSY PARADA, LEE ANN ([id number]), editor in chief MEDARDO MARTÍNEZ ([id number]) on 07/13/2024 10:30:37 AM Referred By: TL Confirmed By: LEE ANN BLAIR MD
[2024-07-11] MEDS: Lidocaine 2% Viscous15 ML UDC 15 ML PO (01:25)
[2024-07-11] MEDS: Ondansetron 4 MG/2 ML Vial IV (01:25)
[2024-07-11] MEDS: Mag Hydrox/Al Hydrox/Simeth 30 ML UDC PO (01:25)
--- NOTE | 2024-07-11 01:28 | ED.VIS.CHEST ---
HPI History of Present Illness Chief Complaint: Chest Pain Informant: patient Narrative Narrative: Epigastric chest pain 3 hours prior to arrival. Nausea without vomiting. No recent cough. She has history of esophageal spasms reported EGD earlier this year by Dr. Beard at [place]. She is on a PPI. Denies any cardiac history. Denies hypertension, diabetes or hyperlipidemia. She is on thyroid medications. Prior Similar Symptoms: Yes PFSH PFS Medical History Migraines Home Medications ?Medication ?Instructions ?Recorded ?Last Taken ?Type ranitidine HCl 150 mg tablet 150 mg PO DAILY 07/24/17 Unknown History omeprazole 40 mg capsule,delayed 40 mg PO DAILY 11/16/18 Unknown History release propranolol 10 mg tablet 10 mg PO DAILY 11/16/18 Unknown History albuterol sulfate 90 mcg/actuation 1 - 2 puff inhalation Q4H PRN PRN 02/19/19 Unknown Rx aerosol inhaler Wheezing ##1 paroxetine HCl 30 mg tablet 30 mg PO DAILY 12/06/19 Unknown History sulfamethoxazole 800 1 tab PO BID #20 TABLETS 11/28/22 Unknown Rx mg-trimethoprim 160 mg tablet albuterol sulfate 90 mcg/actuation 2 puff inhalation Q4H PRN PRN 02/14/24 Unknown Rx aerosol inhaler (Ventolin HFA) Wheezing ##1 omeprazole 40 mg capsule,delayed 40 mg PO BID #28 caps 07/11/24 Unknown Rx release ondansetron 4 mg disintegrating 4 mg PO Q8H PRN PRN Nausea #10 tabs 07/11/24 Unknown Rx tablet sucralfate 1 gram tablet (Carafate) 1 g PO Q6H #60 tabs 07/11/24 Unknown Rx thyroid (pork) 30 mg tablet (Niva 30 mg PO DAILY 07/11/24 Unknown History Thyroid) Allergy/AdvReac Type Severity Reaction Status Date / Time No Known Allergies Allergy Verified 07/11/24 00:57 Social History Smoking Status: Current every day smoker tobacco type: cigarettes ROS ROS ED Constitutional Constitutional ED: Denies chills, fever(s) or sweats Eyes Eyes: Denies change in vision ENT ENT ED: Denies dysphagia or sore throat Cardiovascular Cardiovascular: Reports chest pain; Denies leg edema, palpitations or racing heartbeat Respiratory/Chest Respiratory/Chest: Denies cough, dyspnea or dyspnea on exertion Gastrointestinal Gastrointestinal: Reports abdominal pain and nausea; Denies diarrhea or vomiting Genitourinary Genitourinary ED: Denies dysuria, hematuria or urinary frequency Musculoskeletal Musculoskeletal: Denies back pain, extremity pain or neck pain Integumentary Denies rash or wounds Neurologic Neurologic: Denies headache(s), paresthesias or weakness EXAM Physical Exam Const Vital Signs: 07/11/24 00:42 07/11/24 01:33 07/11/24 01:41 Temperature 96.7 F L Temperature Source Temporal Pulse Rate 93 67 Respiratory Rate 20 H 19 H Respiratory Effort Normal Non-Labored Blood Pressure 141/90 H 149/100 H Blood Pressure Mean 107 116 Pulse Ox 100 100 Oxygen Delivery Method Room Air Room Air 07/11/24 02:00 07/11/24 03:00 07/11/24 04:00 Temperature Temperature Source Pulse Rate 68 62 71 Respiratory Rate 17 14 18 Respiratory Effort Blood Pressure 125/83 H 152/109 H Blood Pressure Mean 97 123 Pulse Ox 98 98 98 Oxygen Delivery Method Room Air Room Air Room Air 07/11/24 05:00 07/11/24 05:09 Temperature 98.2 F Temperature Source Pulse Rate 68 68 Respiratory Rate 17 17 Respiratory Effort Blood Pressure 159/100 H 159/100 H Blood Pressure Mean 119 119 Pulse Ox 97 99 Oxygen Delivery Method Room Air Positive well nourished and well developed General Appearance ED: well developed and NAD HEENT Reports moist mucous membranes normocephalic and atraumatic Eyes EOMs intact bilaterally and conjunctivae normal General Eye ED: Yes normal appearance of both eyes Neck no lymphadenopathy and supple General: Negative for tenderness Chest Wall Chest: Negative for tenderness Resp normal respiratory effort and normal air movement Effort and Inspection: symmetric chest movement; Negative for respiratory distress Cardio regular rate, regular rhythm and no murmurs Peripheral Pulses: pulses 2+ throughout GI normal to inspection, nondistended, normoactive bowel sounds and non-tender GI Narrative: Negative Alan's or McBurney's tenderness. Palpation: Negative for guarding or rebound tenderness present Back/Spine no CVA tenderness and no thoracic nor lumbar tenderness Extremity normal to inspection General Extremety ED: Negative for edema or tenderness General Extremity: Negative for edema Neuro oriented x3 and no sensory deficits noted Sensorium / Orientation: awake and alert Skin no rashes or lesions noted and no wounds Heart Score History: Slightly/Non-Suspicious ECG: Normal Age: </= 45 years Risk Factors: 1 or 2 Risk Factors Troponin: </= Normal Limit Score: 1 MDM MDM MDM Narrative Medical decision making narrative: Interventions / MDM: Differential diagnosis: Atypical chest pain, gastritis Diagnosis considered but do not suspect: Pulmonary embolism however PE RC criteria negative. ACS however EKG no ischemic findings cardiac enzymes negative. My EKG interpretation: Sinus rate of 83, no ST changes, T wave inversions anterior leads. QTc 462. Similar findings November 2019. EKG #2 at 0308: Sinus rhythm rate of 63, no ST changes. T wave version anterior leads similar to previous. Imaging independently reviewed and interpreted by myself: 1 view chest x-ray: No acute process. External documents reviewed: N/A Test considered but not ordered:N/A ED course: Patient epigastric pain with chest discomfort on a PPI. Upper endoscopy within this past year per patient. Will check EKG cardiac labs along with abdominal labs. Will treat with Zofran and GI cocktail. 0300: Reported by nursing chest pain worsening. I reordered EKG. However reevaluation she states symptoms were just not improving. She appears much more comfortable on my exam. Repeat EKG is unchanged. Awaiting delta troponin. Abdominal labs bleeding lipase liver enzymes normal. Initial troponin was 6. Creatinine 0.81. Hemoglobin 13.5. IV Pepcid ordered. Reevaluation clinically stable. Delta troponin negative. I discussed with patient increasing her omeprazole to twice a day for next 2 weeks. She started on Carafate. Prescription of Zofran to use as needed. Outpatient follow-up. Return precautions. Re-evaluation: stable Disposition discussed with patient/family/significant other: Patient Case discussed with consulting clinician: N/A This note was generated with [employer] dictation software. It may contain incorrect words, spelling, and punctuation that were not noted in checking the note before signing. Lab Data Attestation: I reviewed the patient's lab results. Labs: Laboratory Results - last 24 hr 07/11/24 07/11/24 01:27 03:36 WBC 12.1 H RBC 4.79 Hgb 13.5 Hct 40.2 MCV 83.9 MCH 28.2 MCHC 33.6 RDW Std Deviation 40.6 RDW Coeff of Elena 13.2 Plt Count 299 MPV 11.4 Immature Gran % (Auto) 0.400 Neut % (Auto) 61.6 Lymph % (Auto) 29.8 [place] % (Auto) 6.9 Eos % (Auto) 0.9 Baso % (Auto) 0.4 Absolute Neuts (auto) 7.5 Absolute Lymphs (auto) 3.60 Nucleated RBC % 0 Sodium 138 Potassium 3.6 Chloride 108 H Carbon Dioxide 25.0 Anion Gap 6 BUN 19 H Creatinine 0.81 Estim Creat Clear Calc 131.17 Est GFR (MDRD) Af Amer 106 Est GFR (MDRD) Non-Af 87 BUN/Creatinine Ratio 23.5 H Glucose 134 H Calcium 9.0 Total Bilirubin 0.20 AST 18 ALT 30 Alkaline Phosphatase 67 Troponin I High Sens 6 7 Total Protein 7.7 Albumin 3.4 Globulin 4.3 H Albumin/Globulin Ratio 0.8 L Lipase 34 Radiography Diagnostic Testing: Clinical Impression(s) from Imaging Studies Chest X-Ray 07/11/24 01:15 IMPRESSION: No acute pulmonary finding. Electronically Signed: Mario Conner MD at 2:55 EST , Discharge Plan Triage Chief Complaint: Chest Pain ED Provider: Virgilio Lin Dx/Rx/DC Orders Clinical Impression: Atypical chest pain, Gastritis Instructions: ED Chest Pain, Noncardiac, ED Gastritis (Adult) Prescriptions: New sucralfate [Carafate] 1 gram tablet 1 g PO Q6H Qty: 60 0RF ondansetron 4 mg tablet,disintegrating 4 mg PO Q8H PRN PRN (Reason: Nausea) Qty: 10 0RF omeprazole 40 mg capsule,delayed release(DR/EC) 40 mg PO BID Qty: 28 0RF No Action ranitidine HCl 150 MG tablet 150 mg PO DAILY omeprazole 40 MG capsule,delayed release(DR/EC) 40 mg PO DAILY Patient Comments: Take 1 capsule by mouth once daily. propranolol 10 tablet 10 mg PO DAILY albuterol sulfate 1 INHALER inhaler 1 - 2 puff inhalation Q4H PRN PRN (Reason: Wheezing) Qty: 1 0RF paroxetine HCl 30 MG tablet 30 mg PO DAILY sulfamethoxazole-trimethoprim [sulfamethoxazole-trimethoprim] 800-160 mg tablet 1 tab PO BID Qty: 20 0RF thyroid (pork) [Niva Thyroid] 30 mg tablet 30 mg PO DAILY albuterol sulfate [Ventolin HFA] 90 mcg/actuation HFA aerosol inhaler 2 puff inhalation Q4H PRN PRN (Reason: Wheezing) Qty: 1 0RF Rx Instructions: with spacer Stand Alone Forms: Work / School Excuse Primary Care Provider: Osmani Holcomb Referrals: Osmani Holcomb MD [Primary Care Provider] - Valeria Beard MD [Med Staff - Active Staff] - 1-2 Weeks Activity Restrictions/Additional Instructions: Cardiac workup negative. Abdominal labs normal. Increase your omeprazole twice a day for next 2 weeks. Take Carafate as prescribed. Monitor for black or bloody stools. Use Zofran as needed. Follow-up with Dr. Beard as she did your endoscopy this past year. Print Language: Portuguese Disposition Disposition: Home, Self Care Discharge Date/Time: 07/11/24 05:10
[2024-07-11 01:34] LABS: Absolute Neutrophil Count 7.5 X10^3/uL (2.0-7.7); Basophil# 0.05 X10^3/uL; Basophil% 0.4 % (0-1); Eosinophil# 0.11 X10^3/uL; Eosinophils% 0.9 % (0-5); Hematocrit 40.2 % (37-47); Hemoglobin 13.5 g/dL (12.0-15.0); Lymphocyte % 29.8 % (19-41); Mean Corp Hgb Conc 33.6 g/dL (32-36); Mean Corpuscular Hgb 28.2 pg (27.0-32.0); Mean Corpuscular Volume 83.9 fL (81-99); Mean Platelet Vol. 11.4 fl (6.2-12.0); Monocyte# 0.83 X10^3/uL; Monocyte% 6.9 % (0-10); NRBC Flagged by Analyzer 0 % (0-5); Neutrophil # 7.46 X10^3/uL (2.7-7.7); Neutrophil % 61.6 % (47-70); Platelet Count 299 K/mm3 (150-450); RBC Distribution Width CV 13.2 % (11.6-14.6); RBC Distribution Width SD 40.6 fl (35.1-43.9); Red Blood Count 4.79 M/mm3 (4.2-5.4); White Blood Count 12.1 K/mm3 (4.4-11.0)
[2024-07-11 02:03] LABS: ALB/GLOB Ratio 0.8 RATIO (0.9-2.4); AST(SGOT) 18 U/L (15-37); Alanine Aminotransfer ALT/SGPT 30 U/L (13-56); Albumin, Serum 3.4 g/dL (3.2-5.0); Alkaline Phosphatase 67 U/L (45-117); Anion Gap 6 (5-15); BUN 19 mg/dL (7-18); BUN/Creat Ratio 23.5 RATIO (10-20); Chloride 108 mmol/L (98-107); Creatinine, Serum 0.81 mg/dL (0.55-1.02); EST Glomerular Filtration Rate 87 mL/min (>60); Est Glom Filt Rate - Afr Amer 106 mL/min (>60); Estimated Creatinine Clearance 131.17 ml/min; Globulin 4.3 g/dL (2.2-4.2); Glucose 134 mg/dL (74-106); Lipase 34 U/L (13-75); Potassium 3.6 mmol/L (3.5-5.1); Protein, Total 7.7 g/dL (6.4-8.2); Sodium Level 138 mmol/L (136-145); Troponin-I HS (w/2H Reflex) 6 pg/mL (3.0-54.0)
--- NOTE | 2024-07-11 02:52 | EKG12_ITS ---
Test Reason : REPEAT CP Blood Pressure : */* mmHG Vent. Rate : 63 BPM Atrial Rate : 63 BPM P-R Int : 148 ms QRS Dur : 90 ms QT Int : 440 ms P-R-T Axes : 35 48 31 degrees QTcB Int : 450 ms Normal sinus rhythm with sinus arrhythmia Normal ECG Confirmed by ROSSY PARADA, LEE ANN ([id number]), clinical editor MEDARDO MARTÍNEZ ([id number]) on 07/13/2024 10:30:46 AM Referred By: TL Confirmed By: LEE ANN BLAIR MD
[2024-07-11] MEDS: Famotidine 200 MG/20 ML MDV 20 MG in 0.9% Normal Saline (Pres. free 8 ML 300 MG IV (03:07)
[2024-07-11 03:30] LABS: Reflex Troponin-HS? (from REC) Y
[2024-07-11 04:05] LABS: Troponin-I HS 7 pg/mL (3.0-54.0)
== END 2024-07-11 05:10 | disposition home or self-care (01) ==
PROVIDERS: Emergency Provider Emergency Medicine; PCP Family Medicine; Visit Provider Emergency Medicine
DX: R07.89 Other chest pain (principal); K29.70 Gastritis, unspecified, without bleeding; F17.210 Nicotine dependence, cigarettes, uncomplicated
CPT/HCPCS: 71045; 80053; 83690; 84484; 85025; 93005; 96374; 99285; A4216; J2405

== ENCOUNTER 2024-10-24 09:02 | Emergency (ER) | payer MEDICAID, SELFPAY ==
[2024-10-24 09:03] VITALS: BP 142/77; PULSE 74; RESP 20; TEMP 36.8; O2SAT 98; BMI 49.8
--- NOTE | 2024-10-24 09:15 | EDS_ITS ---
HPI History of Present Illness Chief Complaint: Cough Detail of Chief Complaint: Flulike symptoms Informant: patient Onset/Context/Timing Onset: Days (Wednesday, October 21) Context: Sudden Onset Timing: Continuous and Waxes and wanes Quality: Upper respiratory tract infectious symptoms Location: Respiratory Current Severity: Mild Maximum Severity: Moderate Worsened by: Coughing and exertion Relieved by: Nothing Associated Symptoms Associated Symptoms: Tmax 102.0 ?F, upper respiratory tract infection symptoms, myalgias arthral Narrative Narrative: Patient is a 33-year-old female who is smoked 1/4 pack/day since age of 18. She presents with a Tmax of 102.0 ?F. She has rhinorrhea, congestion, postnasal drainage, nonproductive cough and myalgias and arthralgias. She denies sore throat. She denies neck pain or stiffness. She denies GI symptoms i.e. nausea, vomiting or diarrhea. She does have history of hypothyroidism. She has used an inhaler in the past. There is a history of GERD. Prior similar symptoms: Yes Recent Illness/Hospitalization: No [facility] Medical History (Updated 10/24/24 @ 10:[address] Salty Hendricks MD) Hypothyroidism Migraines Home Medications ?Medication ?Instructions ?Recorded ?Last Taken ?Type ranitidine HCl 150 mg tablet 150 mg PO DAILY 07/24/17 Unknown History omeprazole 40 mg capsule,delayed 40 mg PO DAILY Unknown History release propranolol 10 mg tablet 10 mg PO DAILY 11/16/18 Unkn own History albuterol sulfate 90 mcg/actuation 1 - 2 puff inhalati on Q4H PRN PRN 02/19/19 Unknown Rx aerosol inhaler Wheezing ##1 paroxetine HCl 30 mg tablet 30 mg PO DAILY 12/06/19 Un known History sulfamethoxazole 800 1 tab PO BID #20 TABLETS 01/15 Unknown Rx mg-trimethoprim 160 mg tablet albuterol sulfate 90 mcg/actuation 2 puff inhalation Q 4H PRN PRN 02/14/24 Unknown Rx aerosol inhaler (Ventolin HFA) Wheezing ##1 omeprazole 40 mg capsule,delayed 40 mg PO BID #28 caps 07/11/24 Unknown Rx release ondansetron 4 mg disintegrating 4 mg PO Q8H PRN PRN Na usea #10 tabs 07/11/24 Unknown Rx tablet sucralfate 1 gram tablet (Carafate) 1 g PO Q6H #60 tab s 07/11/24 Unknown Rx thyroid (pork) 30 mg tablet (Niva 30 mg PO DAILY 07/11 Unknown History Thyroid) albuterol sulfate 90 mcg/actuation 2 puff inhalation Q 4H PRN PRN 10/24/24 Unknown Rx aerosol inhaler (Ventolin HFA) Wheezing ##1 Allergy/AdvReac Type Severity Reaction Status Date / Time No Known Allergies Allergy Verified 10/24/24 09:02 Social History Smoking Status: Current every day smoker tobacco type: cigarettes ROS ROS ED Constitutional Constitutional ED: Reports chills and fever(s); Denies subjective or sweats Eyes Eyes: Denies blurry vision or change in vision ENT ENT ED: Reports rhinorrhea; Denies ear pain or sore throat Cardiovascular Cardiovascular: Denies chest pain, orthopnea, palpitations or paroxysmal nocturnal dyspnea Respiratory/Chest Respiratory/Chest: Reports cough, dyspnea and other Details: Intermittent wheezing ; Denies dyspnea on exertion, orthopnea, paroxysmal nocturnal dyspnea or sputum Gastrointestinal Gastrointestinal: Denies abdominal pain, diarrhea, nausea or vomiting Genitourinary Genitourinary ED: Denies dysuria, hematuria or urinary frequency Integumentary Denies rash Hematologic/Lymphatic Hematologic/Lymphatic: Denies easy bleeding or easy bruising EXAM Physical Exam Const Vital Signs: 10/24/24 09:03 10/24/24 09:22 10/24/24 09:25 Temperature 98.2 F Temperature Source Oral Pulse Rate 74 75 Respiratory Rate 20 H 16 Respiratory Effort Short of Breath Blood Pressure 142/77 H Blood Pressure Mean 98 Pulse Ox 98 Oxygen Delivery Method Room Air Positive well nourished and well developed Constitutional Narrative: BMI is 49.8. Patient vitals are marked for an elevated blood pressure. General Appearance ED: well developed; Negative for pallor HEENT Reports moist mucous membranes HEENT Narrative: Head is atraumatic normocephalic. Ears normal. Nares patent. Posterior pharynx is normal Eyes PERRL and EOMs intact bilaterally General Eye ED: Negative for pale conjunctiva or scleral icterus Neck no lymphadenopathy, supple and no JVD Neck Narrative: Trachea is midline. There is no inspiratory stridor. Resp normal respiratory effort and No clear to auscultation bilaterally Auscultation: wheezes expiratory wheezes, scattered wheezes and throughout Cardio regular rate, regular rhythm, S1 normal heart sound, S2 normal heart sound and no murmurs Extremity normal to inspection Neuro oriented x3 and CN's II-XII intact bilaterally Sensorium / Orientation: alert Psych mental status grossly normal Skin no rashes or lesions noted, no wounds and skin turgor normal General Skin Exam: Negative for jaundice or pallor MDM MDM MDM Narrative Medical decision making narrative: Patient with upper respiratory symptoms. Will obtain rapid antigen for COVID, influenza RSV since she has had documented temperature up to 102 degrees. She does have flulike symptoms. This would affect her employment. In my opinion imaging is not indicated since she is not tachycardic, tachypneic or febrile. Based on literature published in annals of internal medicine 2-3 decades ago. She was treated with albuterol. History & Record Review Additional record(s) reviewed:: Prior ED visit (Seen June 2024 for atypical chest pain, January 2024 for bronchitis and November 2022 for abscess.) and Prior labs Lab Data Lab results narrative: Rapid antigen for COVID, RSV and influenza are all negative. Treatment and Re-Evaluation :: Patient was reexamined at 1056. She is wheeze free. She was given a note that states she was here. She is prescribed an inhaler. He was informed he may be sick for another 7 to 10 days. She may have a cough up to 4 weeks. Discharge Plan Triage Chief Complaint: Cough ED Provider: Salty Hendricks Dx/Rx/DC Orders Clinical Impression: Acute bronchitis, Acute bronchospasm, Fever in adult Instructions: ED Bronchitis, No Antibiotic (Adult) Prescriptions: New albuterol sulfate [Ventolin HFA] 90 mcg/actuation HFA aerosol inhaler 2 puff inhalation Q4H PRN PRN (Reason: Wheezing) Qty: 1 0RF No Action ranitidine HCl 150 MG tablet 150 mg PO DAILY omeprazole 40 MG capsule,delayed release(DR/EC) 40 mg PO DAILY Patient Comments: Take 1 capsule by mouth once daily. propranolol 10 tablet 10 mg PO DAILY albuterol sulfate 1 INHALER inhaler 1 - 2 puff inhalation Q4H PRN PRN (Reason: Wheezing) Qty: 1 0RF paroxetine HCl 30 MG tablet 30 mg PO DAILY sulfamethoxazole-trimethoprim [sulfamethoxazole-trimethoprim] 800-160 mg tablet 1 tab PO BID Qty: 20 0RF thyroid (pork) [Niva Thyroid] 30 mg tablet 30 mg PO DAILY sucralfate [Carafate] 1 gram tablet 1 g PO Q6H Qty: 60 0RF ondansetron 4 mg tablet,disintegrating 4 mg PO Q8H PRN PRN (Reason: Nausea) Qty: 10 0RF omeprazole 40 mg capsule,delayed release(DR/EC) 40 mg PO BID Qty: 28 0RF albuterol sulfate [Ventolin HFA] 90 mcg/actuation HFA aerosol inhaler 2 puff inhalation Q4H PRN PRN (Reason: Wheezing) Qty: 1 0RF Rx Instructions: with spacer Stand Alone Forms: ED Work / School Excuse Primary Care Provider: Osmani Holcomb Referrals: Osmani Holcomb MD [Primary Care Provider] - 10-14 Days if not better Activity Restrictions/Additional Instructions: 1. Is in her best interest to quit smoking. 2. Because you smoke you may have a cough up to 4 weeks. 3. You may be ill for another 7 to 10 days Print Language: Bulgarian Disposition Disposition: Home, Self Care
[2024-10-24 09:22] VITALS: PULSE 75; RESP 16
[2024-10-24] MEDS: Albuterol 2.5 MG/3 ML VIAL.NEB. INHALATION ×3 (09:22)
== END 2024-10-24 11:08 | disposition home or self-care (01) ==
LOC: ED 11:06
PROVIDERS: Emergency Provider Emergency Medicine; PCP Family Medicine; Visit Provider Emergency Medicine
DX: J20.9 Acute bronchitis, unspecified (principal); F17.210 Nicotine dependence, cigarettes, uncomplicated; M79.10 Myalgia, unspecified site; R50.9 Fever, unspecified; E03.9 Hypothyroidism, unspecified
CPT/HCPCS: 87631; 94640; 99282

== ENCOUNTER 2025-01-03 10:23 | Emergency (ER) | payer MEDICAID, SELFPAY ==
[2025-01-03 10:23] VITALS: BP 132/95; PULSE 98; RESP 18; TEMP 36.8; O2SAT 100; BMI 49.8
--- NOTE | 2025-01-03 11:14 | VDLE_ITS ---
Reason For Study Reason For Study: Pain RIGHT LEFT CFV is compressible, spontaneous, phasic, competent GSV is normal. and demonstrates normal augmentation. CFV is compressible, spontaneous, phasic, competent, Procedure and demonstrates normal augmentation. This is a venous duplex using B-mode, color flow and FV is compressible, spontaneous, phasic, competent spectral Doppler. and demonstrates normal augmentation. Exam performed portable in ED. POP V is compressible, spontaneous, phasic, competent A preliminary report was called and/or faxed to [facility] and demonstrates normal augmentation. MD Castillo. T/P Trunk is compressible. PTV is compressible. LT PerV is compressible. VL/Venous Duplex US, Unilateral Interpretation Summary Deep veins of the left lower extremity are patent and compressible segmentally. There is no evidence of left lower extremity deep vein thrombosis. The left great saphenous vein appears patent an d compressible segmentally. Ordering Physician: Jairo Chong Referring Physician: Osmani Holcomb MD Performed By: Bonnie Vogt RVT
--- NOTE | 2025-01-03 11:15 | ED.VIS.LOWEX ---
HPI History of Present Illness HPI Narrative: 34-year-old female known varicose veins atraumatic left calf pain today. No prior history. No history of DVT or PE. No recent travel, surgery or immobilization. Chief Complaint: Wound Informant: patient Occured/Mechanism Mechanism/Context: No injury and No blunt trauma Onset/Context/Timing Onset: Today Context: Sudden Onset Timing: Continuous Quality of Pain: Dull Current Severity: Mild Maximum Severity: Mild Associated Symptoms Associated Symptoms: Negative for Parasthesia, Weakness or Loss of Funtion Narrative Narrative: 34-year-old female atraumatic left calf pain. History of varicose veins. Prior similar symptoms: No Recent Illness/Hospitalization: No [facility] Medical History Hypothyroidism Migraines Home Medications ?Medication ?Instructions ?Recorded ?Last Taken ?Type ranitidine HCl 150 mg tablet 150 mg PO DAILY 07/24/17 Unknown History omeprazole 40 mg capsule,delayed 40 mg PO DAILY 11/16/18 Unknown History release propranolol 10 mg tablet 10 mg PO DAILY 11/16/18 Unknown History albuterol sulfate 90 mcg/actuation 1 - 2 puff inhalation Q4H PRN PRN 02/19/19 Unknown Rx aerosol inhaler Wheezing ##1 paroxetine HCl 30 mg tablet 30 mg PO DAILY 12/06/19 Unknown History sulfamethoxazole 800 1 tab PO BID #20 TABLETS 11/28/22 Unknown Rx mg-trimethoprim 160 mg tablet albuterol sulfate 90 mcg/actuation 2 puff inhalation Q4H PRN PRN 02/14/24 Unknown Rx aerosol inhaler (Ventolin HFA) Wheezing ##1 omeprazole 40 mg capsule,delayed 40 mg PO BID #28 caps 07/11/24 Unknown Rx release ondansetron 4 mg disintegrating 4 mg PO Q8H PRN PRN Nausea #10 tabs 07/11/24 Unknown Rx tablet sucralfate 1 gram tablet (Carafate) 1 g PO Q6H #60 tabs 07/11/24 Unknown Rx thyroid (pork) 30 mg tablet (Niva 30 mg PO DAILY 07/11/24 Unknown History Thyroid) albuterol sulfate 90 mcg/actuation 2 puff inhalation Q4H PRN PRN 10/24/24 Unknown Rx aerosol inhaler (Ventolin HFA) Wheezing ##1 Allergy/AdvReac Type Severity Reaction Status Date / Time No Known Allergies Allergy Verified 10/24/24 09:02 Social History Smoking Status: Current every day smoker tobacco type: cigarettes ROS ROS ED ROS Narrative Denies recent illness. Constitutional Constitutional ED: Denies chills or fever(s) Eyes Eyes: Denies blurry vision ENT ENT ED: Denies ear pain Cardiovascular Cardiovascular: Denies chest pain Respiratory/Chest Respiratory/Chest: Denies cough or dyspnea Gastrointestinal Gastrointestinal: Denies abdominal pain Genitourinary Genitourinary ED: Denies dysuria or hematuria Musculoskeletal Musculoskeletal: Denies arthralgias Integumentary Denies abscess Neurologic Neurologic: Denies headache(s) Psychiatric Psychiatric: Denies anxiety Endocrine Endocrinology: Denies polydipsia Hematologic/Lymphatic Hematologic/Lymphatic: Denies easy bleeding, easy bruising or lymphadenopathy Allergic/Immunologic Allergic/Immunologic ED: Denies mouth swelling, tongue swelling or urticaria EXAM Physical Exam Narrative Exam Narrative: Well-appearing 34-year-old female. Vital signs stable afebrile. Pulse ox 100% on room air no hypoxia. H EENT exam pupils round react light. Moist mucous membranes. Normal speech. Lungs clear equal and symmetrical. Heart regular rhythm rate about 95 no murmur. Chest wall ribs nontender. Abdomen soft nontender. Moving all 4 extremities. Left calf tenderness consistent with ruptured varicose vein with a small hematoma. This could also be a superficial thrombophlebitis. Unlikely to be a DVT. There is no edema. Left foot is normal dorsi plantarflexion neurovascularly intact. Normal range of motion and strength. Right lower extremity is unremarkable other than varicose veins. She has varicose veins also in the left calf. Neurologically she is awake and alert. No focal motor deficits. Benign exam. Const Vital Signs: 01/03/25 10:23 Temperature 98.3 F Temperature Source Oral Pulse Rate 98 Respiratory Rate 18 Blood Pressure 132/95 H Blood Pressure Mean 107 Pulse Ox 100 Oxygen Delivery Method Room Air Positive well nourished and well developed; Negative for cachectic, contractures or unkempt General Appearance ED: well developed and NAD; Negative for unkempt, cachectic or contractures Nutritional Appearance: Negative for cachectic HEENT Reports moist mucous membranes normocephalic and atraumatic Eyes PERRL Neck full ROM and supple Chest Wall inspection of chest normal and palpation of chest normal Resp normal respiratory effort, no retractions and clear to auscultation bilaterally Cardio regular rate, regular rhythm, S1 normal heart sound, S2 normal heart sound and no murmurs GI non-tender, non-distended and no masses Auscultation: normoactive bowel sounds Palpation: soft; Negative for tender, guarding or rebound tenderness present Back/Spine no CVA tenderness General Back: Negative for CVA tenderness Cervical Spine: Negative for cervical spine tenderness Thoracic Spine / Upper Back: Negative for thoracic spinal tenderness Lumbar Spine / Lower Back: Negative for lumbar spinal tenderness Extremity full ROM; Negative for normal to inspection Extremity Narrative: Varicose veins. Left calf tenderness suspect varicose vein with small hematoma. General Extremety ED: Negative for edema General Extremity: Negative for edema Neuro oriented x3, CN's II-XII intact bilaterally, moves all extremities and no sensory deficits noted Sensorium / Orientation: alert, oriented to person, oriented to place and oriented to time; Negative for orientation impaired, confused or lethargic Motor Exam: strength 5/5 throughout Psych mental status grossly normal Appearance: Negative for unkempt Mood & Affect: Negative for anxious Skin no wounds Lesions: no lesions Rashes: no rashes Trauma: Negative for abrasion or laceration MDM MDM MDM Narrative Medical decision making narrative: 34-year-old female left calf atraumatic pain suspect secondary to varicose vein with hematoma versus superficial thrombophlebitis versus DVT. Venous studies can be obtained. Repeat exam patient is doing well at 11:41 AM. We discussed her noninvasive study test being negative. Ice to the area. Motrin Tylenol for pain. I suspect this is a varicose vein and just blood and cause a small hematoma. History & Record Review Discussion w/independent historian: Patient Additional record(s) reviewed:: Prior inpatient record, Prior outpatient record, Prior ED visit and Prior labs Lab Data Lab results narrative: Noninvasive study of the left lower extremity showed no DVT and no superficial thrombophlebitis. This will be treated as a varicose vein pain. Discharge Plan Triage Chief Complaint: Wound ED Provider: Jairo Chong Dx/Rx/DC Orders Clinical Impression: Varicose vein of leg, Hematoma Instructions: ED Varicose Veins Prescriptions: No Action ranitidine HCl 150 MG tablet 150 mg PO DAILY omeprazole 40 MG capsule,delayed release(DR/EC) 40 mg PO DAILY Patient Comments: Take 1 capsule by mouth once daily. propranolol 10 tablet 10 mg PO DAILY albuterol sulfate 1 INHALER inhaler 1 - 2 puff inhalation Q4H PRN PRN (Reason: Wheezing) Qty: 1 0RF paroxetine HCl 30 MG tablet 30 mg PO DAILY sulfamethoxazole-trimethoprim [sulfamethoxazole-trimethoprim] 800-160 mg tablet 1 tab PO BID Qty: 20 0RF thyroid (pork) [Niva Thyroid] 30 mg tablet 30 mg PO DAILY sucralfate [Carafate] 1 gram tablet 1 g PO Q6H Qty: 60 0RF ondansetron 4 mg tablet,disintegrating 4 mg PO Q8H PRN PRN (Reason: Nausea) Qty: 10 0RF omeprazole 40 mg capsule,delayed release(DR/EC) 40 mg PO BID Qty: 28 0RF albuterol sulfate [Ventolin HFA] 90 mcg/actuation HFA aerosol inhaler 2 puff inhalation Q4H PRN PRN (Reason: Wheezing) Qty: 1 0RF albuterol sulfate [Ventolin HFA] 90 mcg/actuation HFA aerosol inhaler 2 puff inhalation Q4H PRN PRN (Reason: Wheezing) Qty: 1 0RF Rx Instructions: with spacer Primary Care Provider: Osmani Holcomb Referrals: Osmani Holcomb MD [Primary Care Provider] - As Needed Activity Restrictions/Additional Instructions: No blood clot. Suspect bleeding come from a varicose vein. Ice to the area. Warm compresses. Motrin Tylenol for pain. Print Language: Croatian Disposition Disposition: Home, Self Care
[2025-01-03 11:49] VITALS: BP 132/87; PULSE 80; RESP 16; TEMP 36.7; O2SAT 100
== END 2025-01-03 11:50 | disposition home or self-care (01) ==
PROVIDERS: Emergency Provider Emergency Medicine; PCP Family Medicine; Visit Provider Emergency Medicine
DX: I83.812 Varicose veins of left lower extremity with pain (principal); I83.892 Varicose veins of left lower extremity with other complications; F17.210 Nicotine dependence, cigarettes, uncomplicated
CPT/HCPCS: 93971; 99282